=== PATIENT | male | born 1955 | race Caucasian/White ===

== ENCOUNTER → 2020-08-26 08:25 | Outpatient (CLI) | payer BC, SELFPAY ==
--- NOTE | 2020-08-26 | DI.MRI.S_ITS ---
PROCEDURE: MR LUMBAR SPINE WO CON INDICATIONS: low back pain TECHNIQUE: Noncontrast sagittal T1 spin echo and T2 fast echo, sagittal STIR, axial T1 and T2 fast spin echo through the lumbar spine. In cases with scoliosis, additional coronal T2 fast spin echo may be performed. COMPARISON: [facility] [facility], CR, XR LUMBAR SPINE WITH OLBIQUES PLUS FLEXION EXTENSION, 08/15/2020, 10:27. FINDINGS: Image quality: Excellent. Alignment and Curvature: There is normal bony alignment. Bone Marrow: Minor type 2 Modic changes are present in the endplates at the L5-S1 level. Marrow is otherwise of normal overall signal. No acute vertebral body compression fractures. Spinal Cord: Conus medullaris terminates at the T12 level. Visualized cord demonstrates normal signal and size. Paraspinous Soft Tissues: No paravertebral masses. There is a distal abdominal aortic aneurysm with an aorta bi-iliac endograft present. The aneurysm sac measures roughly 7.7 cm in craniocaudal dimension by 5.8 cm in greatest AP direction. The left kidney is relatively atrophic compared to the right. T12-L1: Normal appearance. L1-L2: Mild disc desiccation and circumferential disc bulge. Moderate facet arthropathy. L2-L3: Mild disc height loss, desiccation, and moderate circumferential disc bulge effacing the anterior CSF space. Moderate facet and ligamentum flavum hypertrophy. This results in a moderate central canal stenosis. Mild left neural foraminal narrowing.. L3-L4: Mild disc height loss and desiccation. Broad-based central posterior disc herniation measuring about 8 mm in AP direction effaces the anterior CSF. In combination with mild epidural lipomatosis, there is a severe central canal stenosis. There is also encroachment on the nerve root in the left lateral recess. Moderate facet arthropathy is present and there is mild right, and mild to moderate left neural foraminal narrowing.. L4-L5: Changes of a prior left hemilaminectomy. Moderate to marked disc height loss and desiccation. Circumferential mild disc bulge with a very small central disc protrusion but no significant central canal or lateral recess narrowing. Mild bilateral neural foraminal narrowing. L5-S1: Moderate disc height loss and desiccation. Mild broad-based posterior disc bulge. Moderate facet arthropathy encroaching on both lateral recesses.. IMPRESSION: 1. Broad-based disc bulge at L3-4 and epidural lipomatosis create a severe central canal stenosis and probably affects the left L4 nerve root in the lateral recess. 2. Moderate central canal stenosis at L2-3. 3. Prior left hemilaminectomy at L4-5. 4. Stented distal abdominal aortic aneurysm. Dictated by: Radha Keller M.D. on 08/28/2020 at 8:32 Approved by: Radha Keller M.D. on 08/28/2020 at 8:59
== END ==
PROVIDERS: Referring Provider Physical Medicine & Rehabilitation; Visit Provider Physical Medicine & Rehabilitation
DX: M51.26 Other intervertebral disc displacement, lumbar region (principal); M48.061 Spinal stenosis, lumbar region without neurogenic claudication; E88.2 Lipomatosis, not elsewhere classified
CPT/HCPCS: 72148

== ENCOUNTER → 2021-09-26 15:35 | Outpatient (CLI) | payer MEDICARE, BC, SELFPAY ==
--- NOTE | 2021-09-26 | DI.MRI.S_ITS ---
PROCEDURE: MR KNEE RT WO CON INDICATIONS: Unilateral primary osteoarthritis, right knee TECHNIQUE: Noncontrast sagittal PD fast spin echo and T2 fast spin echo with fat saturation, sagittal 3-D FLASH with fat saturation; coronal T1 spin echo and PD fast spin echo with fat saturation, and axial PD fast spin echo with fat saturation through the knee. COMPARISON: [facility], MR, KNEE WITHOUT CONTRAST, 10/29/2012, 13:48. FINDINGS: Image quality: Excellent. Menisci: Deficiency of the posterior horn, medial meniscus with extrusion. Normal morphology of the lateral meniscus. Cruciate ligaments: The PCL is intact. T2 hyperintense signal within the ACL, compatible with mucoid degeneration. A 1.5 x 1.1 cm T2 hyperintense lesion is seen adjacent to the ACL, which may reflect a ganglion. Medial structures: The medial collateral ligament appears intact. Visualized portions of the pes anserinus tendons appear normal. No abnormal bursal fluid. Lateral structures: The lateral collateral ligament, long and short heads of the biceps femoris tendon appear intact. The popliteus tendon appears normal. Iliotibial band appears normal. Anterior structures: The quadriceps and patellar tendons appear intact. Patellar alignment is normal. T2 hyperintense signal underlies the medial retinaculum attachment to the patella. No femoral trochlear dysplasia or ventral trochlear prominence. No edema in the infrapatellar fat pad. Bones and cartilage: No bone marrow contusions or fractures. Signal heterogeneity and thinning of the tricompartment hyaline cartilage, most prominent in the medial compartment. Fissuring is seen in the patella apex and lateral patellar facet. Joint space: Small knee joint fluid. T2 hyperintense signal in the popliteal fossa with intra-articular body measuring up to 10 mm. IMPRESSION: 1. 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 2. Extrusion of the medial meniscus with deficiency of the posterior horn, compatible with meniscal tear and/or prior meniscectomy. 3. Small joint effusion. 4. Small Flores's cyst with intra-articular body. 5. Degenerative changes of the hyaline cartilage as detailed above. 6. Partial tear of the medial retinaculum at the patellar attachment. Dictated by: Hernandez Bunn M.D. on 09/26/2021 at 16:42 Approved by: Hernandez Bunn M.D. on 09/26/2021 at 16:53
== END ==
PROVIDERS: Referring Provider Orthopaedic Surgery; Visit Provider Orthopaedic Surgery
DX: M17.11 Unilateral primary osteoarthritis, right knee (principal); S76.811A Strain of other specified muscles, fascia and tendons at thigh level, right thigh, initial encounter; M25.461 Effusion, right knee; M71.21 Synovial cyst of popliteal space [Baker], right knee; M67.461 Ganglion, right knee
CPT/HCPCS: 73721

== ENCOUNTER → 2021-11-21 09:45 | Outpatient (CLI) | payer MEDICARE, BC, SELFPAY ==
[2021-11-21 10:53] LABS: Appearance Urine UA CLEAR; Bilirubin Urine UA NEGATIVE (NEGATIVE); Color Urine UA YELLOW; Glucose Urine UA TRACE g/dL (Negative); Ketones Urine UA NEGATIVE (NEGATIVE); Leukocyte Esterase Urine UA NEGATIVE (NEGATIVE); Nitrite Urine UA NEGATIVE (Negative); Occult Blood Urine UA 2+ (Negative); Protein Urine UA NEGATIVE (Negative); Specific Gravity Urine UA 1.015 (1.000-1.035); Urobilinogen Urine UA 0.2 E.U./dL (0.2)
[2021-11-21 11:14] LABS: Culture Indicated Urine Cult Not Indicated; RBC Urine 1-5/HPF (0-5/HPF); WBC Urine None Seen (0-5/HPF)
[2021-11-21 12:14] LABS: Add Manual Diff / Slide Review NO; Basophils Absolute Auto 0 /uL (0-100); Basophils Percent Auto 0.5 % (0-2); Eosinophils Absolute Auto 100 /uL (0-450); Eosinophils Percent Auto 1.5 % (2-4); Hematocrit 50.3 % (41-53); Hemoglobin 17.4 g/dL (13.5-17.5); Lymphocytes Absolute Auto 2500 /uL (1100-4500); Lymphocytes Percent Auto 27.4 % (25-40); Mean Corpuscular HGB Conc 34.6 % (30-36); Mean Corpuscular Hemoglobin 29.3 PG (26-34); Mean Corpuscular Volume 84.7 fL (80-100); Monocytes Absolute Auto 600 /uL (0-900); Monocytes Percent Auto 6.3 % (3-14); Neutrophils Absolute Auto 5800 /uL (1500-7000); Neutrophils Percent Auto 64.3 % (50-75); Platelet Count 171 X10^3/uL (150-400); Red Blood Cell Count 5.94 X10^6/uL (4.5-5.9); White Blood Cell Count 9.1 X10^3/uL (4.5-11.0)
[2021-11-21 12:29] LABS: Hemoglobin A1C% w Est Avg Glu 6.2 % (4.0-6.0)
[2021-11-21 12:33] LABS: BUN Creatinine Ratio 13.3 (6-22); Blood Urea Nitrogen 24 mg/dL (9-20); Calcium 9.1 mg/dL (8.4-10.2); Carbon Dioxide 23 mmol/L (22-32); Chloride 104 mmol/L (98-107); Estimated Glomerular Filt Rate 37.7 mL/min (>60); Glucose 90 mg/dL (80-110); HEMOLYSIS < 15 (0-50); Potassium 4.2 mmol/L (3.4-5.1); Sodium 140 mmol/L (137-145)
== END ==
PROVIDERS: PCP Internal Medicine; Referring Provider Orthopaedic Surgery; Visit Provider Orthopaedic Surgery
DX: Z01.818 Encounter for other preprocedural examination (principal); R73.9 Hyperglycemia, unspecified; Z01.812 Encounter for preprocedural laboratory examination; N39.0 Urinary tract infection, site not specified
CPT/HCPCS: 36415; 80048; 81001; 83036; 85025; 93005; 93010